=== PATIENT | male | born 1990 | race Caucasian/White ===

== ENCOUNTER → 2021-01-07 | Outpatient (CLI) | payer OTHER ==
[~2021-01-07] MED LIST: E-Z-GAS II EFFERVESCENT PACKET (SODIUM BICARB./CITRIC ACID/SIMETHICONE) As Ordered ONE; E-Z-HD 98% w/w 340GM SUSP BTL As Ordered ONE; E-Z-PAQUE 96% w/w SUSP 176GM BTL As Ordered ONE
--- NOTE | 2021-01-07 10:53 | REP ---
INDICATION: EPIGASTRIC PAIN, GERD. COMPARISON: None TECHNIQUE: This procedure was performed by Beverly Hernandez [facility], under the direct supervision of Dr. Mckay. Images were reviewed with Dr. Mckay prior to dictation. Liquid barium and gas producing crystals were given in the erect position, as well as liquid barium in the prone oblique position in order to perform a double contrast upper GI examination. FINDINGS: The hip hop dance instructor film shows no organomegaly or pathological masses. The intestinal gas pattern is unremarkable. A PA chest x-ray was also submitted as a hip hop dance instructor film the heart within normal limits the lungs appears normal The oral and pharyngeal stages of deglutition were unremarkable. Esophageal transport is prompt and efficient and there is no evidence of esophagitis, stricture, or mucosal ring. There is no evidence of a hiatal hernia. No gastroesophageal reflux was visualized during the exam. The stomach rogers are normally outlined. The rugal folds are smooth and regular. There is no gastritis, neoplasm, or ulcerative disease. The duodenal rogers are normally outlined. The mucosal folds are smooth and regular. There is no duodenitis, peptic ulcer disease or neoplasm. The visualized portion of the proximal small bowel appears normal in course and caliber. IMPRESSION: Unremarkable esophagram with upper GI. 0.3 minutes of fluoroscopy time was utilized for this procedure. Some fluoroscopic images are performed with last image hold technology. These images require no additional radiation. <Electronically signed by Beverly Hrenandez > 01/07/21 1017 <Electronically signed by Nico Mckay > 01/07/21 1052
== END ==
LOC: M RAD 08:10
PROVIDERS: ATTEND Physician Assistant Medical
DX: K21.9 Gastro-esophageal reflux disease without esophagitis (principal); R10.13 Epigastric pain; R13.10 Dysphagia, unspecified

== ENCOUNTER 2021-02-26 13:18 | Day surgery (SDC) | payer OTHER ==
[~2021-02-26] VITALS: Ht 177.8 cm; Wt 75.3 kg
[~2021-02-26 13:18] MED LIST changes: -E-Z-GAS II EFFERVESCENT PACKET (SODIUM BICARB./CITRIC ACID/SIMETHICONE) As Ordered ONE; -E-Z-HD 98% w/w 340GM SUSP BTL As Ordered ONE; -E-Z-PAQUE 96% w/w SUSP 176GM BTL As Ordered ONE; +LORA1TAB4 PO; +NS 1,000 ML IV ONE; +PANT40TA29 PO
--- OUTSIDE RECORDS SUMMARY | 2021-02-26 13:21 | CCD | Continuity of Care Document ---
Author Author Hayden CORTEZ PA-C Organization Unknown Address [address], [address] [place] [address] Phone [phone] Care Team Providers Care Miter Grinder Operator Name Role Phone BoydJessicaM [phone] Problems Description No Active Problems Social History Type Date Description Comments Sex Unknown ETOH Use 1 A Day Tobacco Use Start: Unknown Non Smoker Allergies, Adverse Reactions, Alerts Description No Known Drug Allergies Medications Active Medications SIG Qnty Indications Ordering Provide r Date Pantoprazole Sodium 40mg Tablets D R take 1 tablet by mouth twice daily. 60tabs Dante Vidal MD Lorazepam 0.5mg Tablets 1 tab by mouth prn Unknown Immunizations Description No Information Available Vital Signs Date Vital Result Comment 12/16/2020 9:48am BP Systolic 112 mmHg BP Diastolic 78 mmHg Height 70 inches 5'10" Weight 165.00 lb BMI (Body Mass Index) 23.7 kg/m2 [place] Body Weight 166 lb Weight 74.844 kg BSA (Body Surface Area) 1.92 m2 Results Description No Information Available Procedures Date Code Description Status 12/16/2020 44144 Office/Outpatient New Moderate M DM 45-59 Minutes Completed Medical Devices Description No Information Available Encounters Type Date Location Provider Dx Diagnosis Office Visit 12/16/2020 9:30a [facility] LUBA Echavarria K21.9 Gastro-esophageal reflux dis ease without esophagitis R10.13 Epigastric pain R13.10 Dysphagia, unspecified Assessments Date Code Description Provider 12/16/2020 K21.9 Gastro-esophageal reflux disease without esophagitis LUBA Echavarria 12/16/2020 R10.13 Epigastric pain Jailyn Albrecht margo, LUBA 12/16/2020 R13.10 Dysphagia, unspecified Jailyn A LUBA Cortez Plan of Treatment Future Appointment(s):* 02/26/2021 2:00 am - Tejinder Hogue M.D. at [facility] 12/16/2020 - Jailyn Cheung LUBA Cortez* K21.9 Gastro-esophageal reflux disease without esophagitis * R10.13 Epigastric pain * R13.10 Dysphagia, unspecified * * New Xrays:* Barium Swallow, Esophagram, Scheduled: 01/07/21 * RF Upper GI Series Double Contrast W KUB, Scheduled: 01/07/21 * New Orders:* Endoscopy with possible dilation, Ordered: 12/16/20 * Comments:* Will arrange for upper endoscopy and possible dilation. Reviewed risks and benefits of the procedure, as well as other options, with the patient. Prep for this procedure was discussed with patient. Patient verbalized understanding of all of the above and is in agreement to proceed. Patient will seek medical attention for any acute changes. Will monitor. * Follow up:* As scheduled, sooner if needed. Functional Status Description No Information Available Mental Status Description No Information Available Referrals Refer to Dr Reason for Referral Status Appt Date Tejinder Hogue M.D. GERD Scheduled 12/16 [facility] [address], [address] [place] [address] [phone]
--- OUTSIDE RECORDS SUMMARY | 2021-02-26 13:21 | CCD | Continuity of Care Document ---
Author Author Hayden CORTEZ PA-C Organization Unknown Address [address], [address] [place] [address] Phone [phone] Care Team Providers Care Worm Raiser Name Role Phone BoydJessicaM [phone] Problems Description No Active Problems Social History [...] lb BMI (Body Mass Index) 23.7 kg/m2 [place] Body Weight 166 lb Weight 74.844 kg BSA (Body Surface Area) 1.92 m2 Results Description No Information Available Procedures Description No Information Available Medical Devices Description No Information Available Encounters Description No Information Available Assessments Date Code Description Provider 12/16/2020 K21.9 Gastro-esophageal reflux disease without esophagitis LUBA Echavarria 12/16/2020 R10.13 Epigastric pain LUBA Lei 12/16/2020 R13.10 Dysphagia, unspecified LUBA Echavarria Plan of Treatment 12/16/2020 - LUBA Echavarria* K21.9 Gastro-esophageal reflux disease without esophagitis * R10.13 Epigastric pain * R13.10 Dysphagia, unspecified * * New Xrays:* Barium Swallow, Esophagram, Ordered: 12/16/20 * RF Upper GI Series Double Contrast W KUB, Ordered: 12/16/20 * New Orders:* Endoscopy, Ordered: 12/16/20 * Comments:* Will arrange for [...] Description No Information Available Referrals Refer to Reason for Referral Status Appt Date Tejinder Hogue M.D. GERD Scheduled 12/16 [facility] [address], [address] [place] [address] [phone]
--- OUTSIDE RECORDS SUMMARY | 2021-02-26 13:21 | CCD ---
Author Author [facility] Organization [facility] Address Unknown Phone Unavailable Care Team Providers Care Ore Roaster Name Role Phone Charlebois, A Jailyn RPA C Unavailable Unavailable Charlebois, A Jailyn RPA C Unavailable Unavailable Charlebois, A Jailyn RPA C Unavailable Unavailable Charlebois, A Jailyn RPA C Unavailable Unavailable Charlebois, A Jailyn RPA C Unavailable Unavailable Charlebois, A Jailyn RPA C Unavailable Unavailable Charlebois, A Jailyn RPA C Unavailable Unavailable Charlebois, A Jailyn RPA C Unavailable Unavailable Charlebois, A Jailyn RPA C Unavailable Unavailable Charlebois, A Jailyn RPA C Unavailable Unavailable Charlebois, A Jailyn RPA C Unavailable Unavailable Charlebois, A Jailyn RPA C Unavailable Unavailable Charlebois, A Jailyn RPA C Unavailable Unavailable Charlebois, A Jailyn RPA C Unavailable Unavailable Charlebois, A Jailyn RPA C Unavailable Unavailable Charlebois, A Jailyn RPA C Unavailable Unavailable Charlebois, A Jailyn RPA C Unavailable Unavailable Charlebois, A Jailyn RPA C Unavailable Unavailable Charlebois, A Jailyn RPA C Unavailable Unavailable Charlebois, A Jailyn RPA C Unavailable Unavailable Charlebois, A Jailyn RPA C Unavailable Unavailable Charlebois, A Jailyn RPA C Unavailable Unavailable Charlebois, A Jailyn RPA C Unavailable Unavailable Charlebois, A Jailyn RPA C Unavailable Unavailable Charlebois, A Jailny RPA C Unavailable Unavailable Charlebois, A Jailyn RPA C Unavailable Unavailable Charlebois, A Jailyn RPA C Unavailable Unavailable Charlebois, A Jailyn RPA C Unavailable Unavailable Charlebois, A Jailyn RPA C Unavailable Unavailable Charlebois, A Jailyn RPA C Unavailable Unavailable Charlebois, A Jailyn RPA C Unavailable Unavailable Charlebois, A Jailyn RPA C Unavailable Unavailable Charlebois, A Jailyn RPA C Unavailable Unavailable Re-disclosure Warning The records that you are about to access may contain information from federally-assisted alcohol or drug abuse programs. If such information is present, then the following federally mandated warning applies: This information has been disclosed to you from records protected by federal confidentiality rules (42 CFR part 2). The federal rules prohibit you from making any further disclosure of this information unless further disclosure is expressly permitted by the written consent of the person to whom it pertains or as otherwise permitted by 42 CFR part 2. A general authorization for the release of medical or other information is NOT sufficient for this purpose. The Federal rules restrict any use of the information to criminally investigate or prosecute any alcohol or drug abuse patient.The records that you are about to access may contain highly sensitive health information, the redisclosure of which is protected by Article 27-F of the [facility] Public Health law. If you continue you may have access to information: Regarding HIV / AIDS; Provided by facilities licensed or operated by the [facility] Office of Mental Health; or Provided by the [facility] Office for People With Developmental Disabilities. If such information is present, then the following [facility] mandated warning applies: This information has been disclosed to you from confidential records which are protected by state law. State law prohibits you from making any further disclosure of this information without the specific written consent of the person to whom it pertains, or as otherwise permitted by law. Any unauthorized further disclosure in violation of state law may result in a fine or halfway sentence or both. A general authorization for the release of medical or other information is NOT sufficient authorization for further disc losure. Encounters Encounter Providers Location Date Indications Data Source(s ) Outpatient Attender: Jailyn Paredes RPA Terrence Glez/Ra/Skye flowers/Young 12/16/2020 09:30:00 AM EDT [facility] ([facility] [place]) Immunizations Vaccine Date Status Description Data Source(s) COVID-19 VACCINE [place] 09/02/2020 12:00:00 AM EDT completed [facility] Vaccine Series Complete: YESThis Data wa s Submitted to [facility] Via [employer]. Medications No Information Insurance Providers Payer name Policy type / Coverage type Policy ID Covered democrat ID Covered democrat's relationship to howard Policy Howard Plan Information [facility] [employer] [id number] [facility] [employer] [id number] Problems, Conditions, and Diagnoses No Information Surgeries/Procedures Procedure Description Date Indications Data Source(s) OFFICE OUTPATIENT NEW 45 MINUTES 12/16/2020 12:00:00 A M [facility] ([facility], ) Results No Information Social History No Information Vital Signs ID Date Data Source UNK Name Value Range Interpretation Code Description Data Source(s) Systolic blood pressure 112 mm[Hg] 112 mm[Hg] [facility] ([facility]) Diastolic blood pressure 78 mm[Hg] 78 mm[Hg] [facility] ([facility]) Body height 70 [in_i] 70 [in_i] [facility] ([facility]) 5'10" Body weight 165.00 [lb_av] 165.00 [lb_av] [facility] ([facility]) Body mass index (BMI) [Ratio] 23.7 kg/m2 23.7 k g/m2 [facility] ([facility]) [place] body weight 166 [lb_av] 166 [lb_av] [facility] Body weight 74.844 kg 74.844 kg [facility] ([facility]) Body surface area Derived from formula 1.92 m2 1.92 m2 [facility] ([facility])
[2021-02-26] MEDS ORDERED: LIDOCAINE 2% 100MG/5ML SDV (FOR ANES.) As Ordered ONE (13:52)
[2021-02-26] MEDS ORDERED: propofoL 200 MG/20 ML VIAL As Ordered ONE (13:53)
[2021-02-26] MEDS ORDERED: fentaNYL 100 MCG/2 ML INJECTION (J3010) As Ordered ONE (13:53)
[2021-02-26] MEDS ORDERED: ESMOLOL INJ 100MG/10ML VIAL As Ordered ONE (15:00)
[2021-02-26 15:38] VITALS: BP 121/77
--- NOTE | 2021-02-26 15:42 | ROOR ---
Patient Name: Hayden Lazo Procedure Date: 02/26/2021 2:51 PM Date of : 1990 Age: 30 Room: [facility] Gender: Male Note Status: Finalized Procedure: Upper GI endoscopy Indications: Dysphagia, Heartburn Providers: Tejinder Hogue MD Referring MD: KHUSHI PURI MD Requesting Provider: Medicines: Monitored Anesthesia Care Complications: No immediate complications. Procedure: Pre-Anesthesia Assessment: - Prior to the procedure, a History and Physical was performed, and patient medications and allergies were reviewed. The patient is competent. The risks and benefits of the procedure and the sedation options and risks were discussed with the patient. All questions were answered and informed consent was obtained. Patient identification and proposed procedure were verified by the physician, the nurse and the anesthesiologist in the procedure room. Mental Status Examination: alert and oriented. Airway Examination: normal oropharyngeal airway and neck mobility. Respiratory Examination: clear to auscultation. CV Examination: normal. Prophylactic Antibiotics: The patient does not require prophylactic antibiotics. Prior Anticoagulants: The patient has taken no previous anticoagulant or antiplatelet agents. ASA Grade Assessment: II - A patient with mild systemic disease. After reviewing the risks and benefits, the patient was deemed in satisfactory condition to undergo the procedure. The anesthesia plan was to use monitored anesthesia care (MAC). Immediately prior to administration of medications, the patient was re-assessed for adequacy to receive sedatives. The heart rate, respiratory rate, oxygen saturations, blood pressure, adequacy of pulmonary ventilation, and response to care were monitored throughout the procedure. The physical status of the patient was re-assessed after the procedure. The Endoscope was introduced through the mouth, and advanced to the third part of duodenum. The upper GI endoscopy was accomplished without difficulty. The patient tolerated the procedure well. Findings: Mucosal changes including longitudinal furrows, white plaques and crepe paper esophagus were found in the middle third of the esophagus and in the lower third of the esophagus. Biopsies were obtained from the proximal and distal esophagus with cold forceps for histology of suspected eosinophilic esophagitis. Verification of patient identification for the specimen was done by the physician and nurse using the patient's name, date and medical record number. Estimated blood loss was minimal. Scattered moderate inflammation characterized by erythema and granularity was found in the gastric antrum. Biopsies were taken with a cold forceps for Helicobacter pylori testing. The duodenal bulb and second portion of the duodenum were normal. Impression: - Esophageal mucosal changes suspicious for eosinophilic esophagitis. Biopsied. - Gastritis. Biopsied. - Normal duodenal bulb and second portion of the duodenum. Recommendation: - Patient has a contact number available for emergencies. The signs and symptoms of potential delayed complications were discussed with the patient. Return to normal activities tomorrow. Written discharge instructions were provided to the patient. - Resume previous diet. - Avoid the food allergens. Follow Six Food Elimination Diet ( Avoid -- milk, soy, eggs, wheat, peanuts/tree nuts, and seafood), until allergy testing is done. - Follow an antireflux regimen. - Await pathology results. - Telephone GI clinic for pathology results in 2 weeks. - Return to primary care physician. - Return to GI clinic if persistent symptoms or new symptoms. Procedure Code(s): --- Professional --- 19327, Esophagogastroduodenoscopy, flexible, transoral; with biopsy, single or multiple Diagnosis Code(s): --- Professional --- K22.8, Other specified diseases of esophagus K29.70, Gastritis, unspecified, without bleeding R13.10, Dysphagia, unspecified R12, Heartburn CPT copyright 2019 [employer]. All rights reserved. The codes documented in this report are preliminary and upon customer services coordinator review may be revised to meet current compliance requirements. Tejinder Hogue MD Tejinder Hogue MD 02/26/2021 3:41:41 PM Electronically signed by Tejinder Hogue MD Number of Addenda: 0 Note Initiated On: 02/26/2021 2:51 PM Estimated Blood Loss: Estimated blood loss was minimal.
[2021-02-27] MEDS ORDERED: SEVOFLURANE INHAL SOLN 250 ML BTL As Ordered ONE ×2 (07:23→08:34)
== END 2021-02-26 15:45 | disposition home or self-care (01) ==
LOC: M OPP 13:18
PROVIDERS: ATTEND Internal Medicine Gastroenterology
DX: K29.70 Gastritis, unspecified, without bleeding (principal); R13.10 Dysphagia, unspecified; R12 Heartburn; K22.89 Other specified disease of esophagus
CPT/HCPCS: 43239; 88305; J3010; U0002

== ENCOUNTER 2021-09-24 15:04 | Emergency (ER) | payer OTHER ==
[~2021-09-24] VITALS: Ht 177.8 cm; Wt 74.9 kg
[~2021-09-24 15:04] MED LIST changes: -NS 1,000 ML IV ONE
[2021-09-24] MEDS ORDERED: BUSP5TA PO (15:43)
[2021-09-24 20:06] VITALS: BP 129/92
[2021-09-24 21:39] LABS: HEMATOCRIT 42.6 % (42.0-52.0); HEMOGLOBIN 15.3 g/dl (13.5-17.5); MEAN CORPUSCULAR HGB CONC 35.9 g/dl (32.0-36.5); MEAN CORPUSCULAR VOLUME 89.1 fl (80.0-96.0); PLATELET COUNT, AUTOMATED 230 10^3/uL (150-450); RED BLOOD COUNT 4.78 10^6/uL (4.30-6.10)
[2021-09-24 22:11] LABS: BLOOD UREA NITROGEN 12 MG/DL (7-18); CALCIUM LEVEL 9.1 MG/DL (8.5-10.1); CARBON DIOXIDE LEVEL 29 MEQ/L (21-32); CHLORIDE LEVEL 105 MEQ/L (98-107); CREATININE FOR GFR 0.97 MG/DL (0.70-1.30); GLOMERULAR FILTRATION RATE > 60.0 (>60); GLUCOSE, FASTING 91 MG/DL (70-100); SODIUM LEVEL 139 MEQ/L (136-145)
== END 2021-09-24 23:03 | disposition home or self-care (01) ==
LOC: M ED 15:04
DX: F41.0 Panic disorder [episodic paroxysmal anxiety] (principal); Z79.899 Other long term (current) drug therapy

== ENCOUNTER 2022-05-13 11:36 | Day surgery (SDC) | payer OTHER ==
[~2022-05-13] VITALS: Ht 177.8 cm; Wt 74.8 kg
[~2022-05-13 11:36] MED LIST changes: +BUSP10TA PO; +BUSP5TA PO; +HYDR-3713 PO; +NS 1,000 ML IV ONE
[2022-05-13] MEDS ORDERED: LIDOCAINE 2% 100MG/5ML SDV (FOR ANES.) As Ordered ONE (13:01)
[2022-05-13] MEDS ORDERED: propofoL 200 MG/20 ML VIAL As Ordered ONE (13:01)
[2022-05-13] MEDS ORDERED: fentaNYL 100 MCG/2 ML INJECTION As Ordered ONE (13:02)
[2022-05-13 13:45] VITALS: BP 113/75
== END 2022-05-13 13:54 | disposition home or self-care (01) ==
LOC: M OPP 11:36
PROVIDERS: ATTEND Internal Medicine Gastroenterology
DX: K21.00 Gastro-esophageal reflux disease with esophagitis, without bleeding (principal); K29.70 Gastritis, unspecified, without bleeding; Z79.891 Long term (current) use of opiate analgesic; Z79.899 Other long term (current) drug therapy; F41.9 Anxiety disorder, unspecified; R07.9 Chest pain, unspecified; Z87.891 Personal history of nicotine dependence
CPT/HCPCS: 43239; 88305; J3010

== ENCOUNTER → 2022-08-09 | Day surgery (SDC) | payer OTHER ==
[~2022-08-09] VITALS: Ht 177.8 cm; Wt 74.8 kg
[~2022-08-09] MED LIST changes: +AMIT25TA17; +ESOM40CA35; +LORA1TAB23 PO; -LORA1TAB4 PO
== END | disposition home or self-care (01) ==
LOC: M OPP 12:08
PROVIDERS: ATTEND Internal Medicine Gastroenterology
DX: K21.9 Gastro-esophageal reflux disease without esophagitis (principal); F41.9 Anxiety disorder, unspecified; Z87.891 Personal history of nicotine dependence; Z53.8 Procedure and treatment not carried out for other reasons

== ENCOUNTER 2022-09-01 10:42 | Day surgery (SDC) | payer OTHER ==
[~2022-09-01] VITALS: Ht 177.8 cm; Wt 76.6 kg
[~2022-09-01 10:42] MED LIST changes: -AMIT25TA17; +AMIT25TA17 PO; -ESOM40CA35; +ESOM40CA35 PO
[2022-09-01] MEDS ORDERED: propofoL 200 MG/20 ML VIAL As Ordered ONE ×2 (12:06→12:22)
[2022-09-01] MEDS ORDERED: fentaNYL 100 MCG/2 ML INJECTION As Ordered ONE (12:06)
[2022-09-01 12:54] VITALS: BP 121/78
== END 2022-09-01 13:04 | disposition home or self-care (01) ==
LOC: M OPP 10:42
PROVIDERS: ATTEND Internal Medicine Gastroenterology
DX: K22.89 Other specified disease of esophagus (principal); K29.70 Gastritis, unspecified, without bleeding; F17.200 Nicotine dependence, unspecified, uncomplicated; Z79.899 Other long term (current) drug therapy
CPT/HCPCS: 43239; 88305; 91035; J3010

== ENCOUNTER → 2023-07-29 | Outpatient (REF) | payer OTHER ==
[~2023-07-29] MED LIST changes: -AMIT25TA17 PO; +AMIT25TA19 PO; -NS 1,000 ML IV ONE
== END ==
LOC: M LAB REF 17:43
PROVIDERS: ATTEND Physician Assistant
DX: N30.00 Acute cystitis without hematuria (principal)